=== PATIENT | male | born 1990 | race African-American/Black ===

== ENCOUNTER 2025-05-01 00:32 | Inpatient (IN) | payer MEDICARE, SELFPAY ==
[2025-05-01 03:07] VITALS: BMI 20.9
[2025-05-01] MEDS ORDERED: Dextrose 50% Abboject 50 ML SYRINGE SLOW IVP PRN (04:42)
[2025-05-01] MEDS ORDERED: Ondansetron PF 4 MG/2 ML Vial IVP PRN (04:42)
[2025-05-01] MEDS ORDERED: Glucagon 1 MG/ML KIT IM PRN (04:42)
[2025-05-01] MEDS ORDERED: Acetaminophen 325 MG TAB PO PRN (04:42)
[2025-05-01] MEDS ORDERED: TETANUS, DIPHTHERIA TOX,ADULT (TDVAX) 0.5 ML VIAL IM ONE (04:42)
[2025-05-01 06:08] LABS: Magnesium 1.7 mg/dL (1.6-2.6)
[2025-05-01] MEDS: Magnesium 2 GM/50 ML(in water) 2 GM in Premix 1 BAG IVPB SCH (09:12)
[2025-05-01] MEDS: Enoxaparin 40 MG (0.4 mL) SYRINGE SC SCH (09:19)
[2025-05-01] MEDS: Famotidine 20 MG TAB PO SCH (10:38)
[2025-05-01] MEDS: levETIRAcetam 500 MG TAB PO SCH (10:38)
[2025-05-01] MEDS: TETANUS AND DIPHTHERIA TOX/PF 0.5 ML DISP.SYRIN IM SCH (11:27)
[2025-05-01] MEDS ORDERED: MD-Gastroview 120 ML BOT ONE (13:39)
[2025-05-01 18:25] VITALS: BP 105/69; TEMP 98.4
== END 2025-05-01 20:50 | disposition home or self-care (01) | DRG 390 ==
LOC: T4-A 02:36 → EDBD 02:36
PROVIDERS: ADMIT Surgery; ATTEND Surgery
DX: K56.600 Partial intestinal obstruction, unspecified as to cause (principal); R56.9 Unspecified convulsions; F17.210 Nicotine dependence, cigarettes, uncomplicated; Z98.890 Other specified postprocedural states; Z93.3 Colostomy status; Z79.899 Other long term (current) drug therapy
CPT/HCPCS: 36415; 36416; 74018; 74250; 83735; 84100; 90714; J1650; J3475; J7120; Q9963